=== PATIENT | male | born 1995 | race Caucasian/White ===

== ENCOUNTER → 2020-11-21 | Outpatient (CLI) | payer BC | LOC: RAD 10:11 | DX: M95.4 Acquired deformity of chest and rib (principal) ==

== ENCOUNTER 2020-11-24 10:25 | Emergency (ER) | payer OTHER, BC ==
[2020-11-24 12:36] VITALS: BP 142/82
== END 2020-11-24 12:13 | disposition short-term general hospital (02) ==
LOC: ED 10:25
DX: S62.522B Displaced fracture of distal phalanx of left thumb, initial encounter for open fracture (principal); Z88.2 Allergy status to sulfonamides; Z88.1 Allergy status to other antibiotic agents; Z20.822 Contact with and (suspected) exposure to COVID-19; W23.1XXA Caught, crushed, jammed, or pinched between stationary objects, initial encounter; Y92.59 Other trade areas as the place of occurrence of the external cause; Y99.0 Civilian activity done for income or pay
CPT/HCPCS: 90715; J3010; J7030

== ENCOUNTER 2021-01-14 09:40 | Outpatient (RCR) | payer OTHER, BC | END 2021-04-14 | disposition still patient (30) | LOC: OT | DX: S62.512B Displaced fracture of proximal phalanx of left thumb, initial encounter for open fracture (principal) ==

== ENCOUNTER 2021-04-15 08:30 | Outpatient (RCR) | payer OTHER, BC | END 2021-04-15 17:00 | disposition still patient (30) | LOC: OT 08:30 | DX: S62.512B Displaced fracture of proximal phalanx of left thumb, initial encounter for open fracture (principal) ==